=== PATIENT | male | born 1960 | race Caucasian/White ===

== ENCOUNTER 2017-08-18 13:41 | Inpatient (IN) | payer OTHER ==
[~2017-08-18] VITALS: Ht 177.8 cm; Wt 72.1 kg
[2017-08-18 14:04] VITALS: BP 99/68; PULSE 67; RESP 12; O2SAT 97
[2017-08-18] MEDS ORDERED: MORPHINE SULFATE 4 MG/ML INJ IV PUSH ONE ×4 (14:15→17:15)
[2017-08-18] MEDS ORDERED: SODIUM CHLORIDE 0.9% FLUSH 10 ML FLUSH IVF PRN ×2 (14:15)
[2017-08-18] MEDS ORDERED: SODIUM CHLOR 0.9% 1000 ML INJ 1,000 ML IV ONE ×2 (14:15)
[2017-08-18] MEDS ORDERED: ONDANSETRON HCL 4 MG/2 ML VIAL IV PUSH ONE ×2 (14:15)
--- NOTE | 2017-08-18 14:25 | PD ---
HPI Chief Complaint: Fall Time Seen by Provider: 14:00 Travel History International Travel<30 days: No Contact w/Intl Traveler<30days: No Traveled to known affect area: No History of Present Illness HPI Patient is a 57-year-old male presented to the emergency prompt evaluation after fall. Patient fell 10-15 feet from a tree. Patient works as a tree specialist. He currently reports back pain that is a 10 out of 10. He denies any numbness or tingling in his extremities. He denies any loss of consciousness or headache. He has a contusion to his left forehead. He denies any chest pain , abdominal pain, shortness of breath, nausea, vomiting, dizziness. Furthermore patient denies any significant past medical history but does report a history of iodine allergy, specifically IV contrast. Pain is worse with movement. No alleviating factors at this time. PFSH Past Medical History Medical History: Denies Significant Hx Tetanus Vaccination: Unknown Past Surgical History Appendectomy: Yes Social History Alcohol Use: Yes (occassionaly ) Tobacco Use: Yes (half pack a day ) Substance Use: No Allergies-Medications (Allergen,Severity, Reaction): Coded Allergies: iodine (Verified Allergy, Unknown, 08/18/17) Review of Systems Except as stated in HPI: all other systems reviewed are Neg Eyes: No: Blurred Vision HENT: No: Headaches, Neck Pain Cardiovascular: No: Chest Pain or Discomfort Respiratory: No: Shortness of Breath Gastrointestinal: No: Nausea, Abdominal Pain Musculoskeletal: Positive: Myalgias, Pain (back pain) Skin: Positive Other (abrasions) Neurologic: No: Focal Abnormalities, Change in Mentation, Sensory Disturbance Physical Exam Narrative GENERAL: Thin, well-developed, alert uncomfortable-appearing male. In no acute distress. SKIN: Warm and dry. Superficial abrasions to right wrist, left upper arm, lower back. HEAD: Atraumatic. Normocephalic. EYES: Pupils equal and round. No scleral icterus. No injection or drainage. ENT: No nasal bleeding or discharge. Mucous membranes pink and moist. NECK: Trachea midline. No JVD. CARDIOVASCULAR: Regular rate and rhythm. RESPIRATORY: No accessory muscle use. Clear to auscultation. Breath sounds equal bilaterally. GASTROINTESTINAL: Abdomen soft, non-tender, nondistended. Hepatic and splenic margins not palpable. MUSCULOSKELETAL: Extremities without clubbing, cyanosis, or edema. No obvious deformities. Tenderness to palpation over lumbar spine, no step-off noted. No spinal tenderness or step-off noted in cervical or thoracic spine. NEUROLOGICAL: Awake and alert. No obvious cranial nerve deficits. Motor grossly within normal limits. Five out of 5 muscle strength in the arms and legs. Normal speech. PSYCHIATRIC: Appropriate mood and affect; insight and judgment normal. Data Data Last Documented VS Vital Signs Date Time Temp Pulse Resp B/P (MAP) Pulse Ox O2 Delivery O2 Flow Rate FiO2 08/18/17 16:51 99.0 77 19 131/79 (96) 100 Room Air 08/18/17 14:10 2.00 Orders Orders Basic Metabolic Panel (Bmp) (08/18/17 14:08) Complete Blood Count With Diff (08/18/17 14:08) Prothrombin Time / Inr (Pt) (08/18/17 14:08) Act Partial Throm Time (Ptt) (08/18/17 14:08) Chest, Single Ap (08/18/17 14:08) Ct Brain W/O Iv Contrast(Rout) (08/18/17 14:08) Ct Cerv Spine W/O Contrast (08/18/17 14:08) Ct Thor Spine W/O Contrast (08/18/17 14:08) Ct Lumb Spine W/O Contrast (08/18/17 14:08) Iv Access Insert/Monitor (08/18/17 14:08) Ecg Monitoring (08/18/17 14:08) Oximetry (08/18/17 14:08) Oxygen Administration (08/18/17 14:08) Sodium Chloride 0.9% Flush (Ns Flush) (08/18/17 14:15) Ct Abd/Pel W/O Iv Contrast (08/18/17 ) Ct Thorax/ Chest Wo Iv Contras (08/18/17 ) Sodium Chlor 0.9% 1000 Ml Inj (Ns 1000 M (08/18/17 14:15) Morphine Inj (Morphine Inj) (08/18/17 14:15) Ondansetron Inj (Zofran Inj) (08/18/17 14:15) Morphine Inj (Morphine Inj) (08/18/17 17:15) TLSO (08/18/17 ) Admit Order (Ed Use Only) (08/18/17 17:15) Labs Laboratory Tests Test 08/18/17 14:25 White Blood Count 9.4 TH/MM3 Red Blood Count 4.79 MIL/MM3 Hemoglobin 15.2 GM/DL Hematocrit 44.9 % Mean Corpuscular Volume 93.8 FL Mean Corpuscular Hemoglobin 31.8 PG Mean Corpuscular Hemoglobin Concent 33.9 % Red Cell Distribution Width 12.8 % Platelet Count 175 TH/MM3 Mean Platelet Volume 8.8 FL Neutrophils (%) (Auto) 68.5 % Lymphocytes (%) (Auto) 20.2 % Monocytes (%) (Auto) 6.8 % Eosinophils (%) (Auto) 3.7 % Basophils (%) (Auto) 0.8 % Neutrophils # (Auto) 6.5 TH/MM3 Lymphocytes # (Auto) 1.9 TH/MM3 Monocytes # (Auto) 0.6 TH/MM3 Eosinophils # (Auto) 0.4 TH/MM3 Basophils # (Auto) 0.1 TH/MM3 CBC Comment DIFF FINAL Differential Comment Prothrombin Time 11.0 SEC Prothromb Time International Ratio 1.0 RATIO Activated Partial Thromboplast Time 21.9 SEC Blood Urea Nitrogen 12 MG/DL Creatinine 1.24 MG/DL Random Glucose 96 MG/DL Calcium Level 8.8 MG/DL Sodium Level 142 MEQ/L Potassium Level 3.5 MEQ/L Chloride Level 107 MEQ/L Carbon Dioxide Level 23.2 MEQ/L Anion Gap 12 MEQ/L Estimat Glomerular Filtration Rate 60 ML/MIN MDM Medical Decision Making Medical Screen Exam Complete: Yes Emergency Medical Condition: Yes Interpretation(s) Last Impressions Head CT 08/18/17 140 Signed Impressions: Service Date/Time: Friday, August 18, 2017 16:14 - CONCLUSION: Negative noncontrast head CT. Kwaku Salas MD Chest X-Ray [id number]/18/[id number] Signed Impressions: Service Date/Time: Friday, August 18, 2017 14:29 - CONCLUSION: No evidence of acute cardiopulmonary disease. Kwaku Salas MD Cervical Spine CT [id number] Signed Impressions: Service Date/Time: Friday, August 18, 2017 16:14 - CONCLUSION: Degenerative changes are noted without evidence for acute fracture. Justice Santacruz MD Chest CT 08/18/17 0000 Signed Impressions: Service Date/Time: Friday, August 18, 2017 16:24 - CONCLUSION: 1. Nonacute left clavicular fracture. 2. Lung nodules. 3. Apical emphysematous changes. 4. Atherosclerosis. Justice Santacruz MD Abdomen/Pelvis CT 08/18/17 0000 Signed Impressions: Service Date/Time: Friday, August 18, 2017 16:24 - CONCLUSION: 1. There is diverticulosis without diverticulitis. 2. Multiple spinous process fractures and transverse process fractures are seen within the lumbar spine at L4-L2 spinous processes, and L5-L2 transverse processes. 3. Cholelithiasis. 4. Small amount of hemorrhage is seen adjacent to the psoas musculature on the left. Justice Santacruz MD Laboratory Tests Test 08/18/17 14:25 White Blood Count 9.4 TH/MM3 Red Blood Count 4.79 MIL/MM3 Hemoglobin 15.2 GM/DL Hematocrit 44.9 % Mean Corpuscular Volume 93.8 FL Mean Corpuscular Hemoglobin 31.8 PG Mean Corpuscular Hemoglobin Concent 33.9 % Red Cell Distribution Width 12.8 % Platelet Count 175 TH/MM3 Mean Platelet Volume 8.8 FL Neutrophils (%) (Auto) 68.5 % Lymphocytes (%) (Auto) 20.2 % Monocytes (%) (Auto) 6.8 % Eosinophils (%) (Auto) 3.7 % Basophils (%) (Auto) 0.8 % Neutrophils # (Auto) 6.5 TH/MM3 Lymphocytes # (Auto) 1.9 TH/MM3 Monocytes # (Auto) 0.6 TH/MM3 Eosinophils # (Auto) 0.4 TH/MM3 Basophils # (Auto) 0.1 TH/MM3 CBC Comment DIFF FINAL Differential Comment Prothrombin Time 11.0 SEC Prothromb Time International Ratio 1.0 RATIO Activated Partial Thromboplast Time 21.9 SEC Blood Urea Nitrogen 12 MG/DL Creatinine 1.24 MG/DL Random Glucose 96 MG/DL Calcium Level 8.8 MG/DL Sodium Level 142 MEQ/L Potassium Level 3.5 MEQ/L Chloride Level 107 MEQ/L Carbon Dioxide Level 23.2 MEQ/L Anion Gap 12 MEQ/L Estimat Glomerular Filtration Rate 60 ML/MIN Vital Signs Date Time Temp Pulse Resp B/P (MAP) Pulse Ox O2 Delivery O2 Flow Rate FiO2 08/18/17 14:10 Nasal Cannula 2.00 08/18/17 14:10 98 Nasal Cannula 2.00 08/18/17 14:04 67 12 99/68 (09) 97 Differential Diagnosis Fracture versus contusion versus sprain versus strain versus abrasions versus hemorrhage versus other Narrative Course Patient presented after a fall from approximately 10-15 feet from a tree while at work. His chief complaint is pain in his lower back. He denies any head injury or loss of consciousness. Patient was cleared from the backboard, There is tenderness noted over the lumbar spine on palpation. No focal deficits noted on exam. CT scans, labs ordered and pending. IV access established, patient placed on cafeteria monitor and continuous pulse oximetry. Morphine ordered for pain. Cervical collar was placed by EMS on scene and patient arrived on a backboard. CT scans were read by the radiologist and reports first follows. CT scan the brain shows no acute abnormality. CT scan of cervical spine shows degenerative changes without evidence for acute fracture Chest x-ray shows no acute disease CT the abdomen and pelvis shows diverticulosis without diverticulitis, multiple spinous process fractures and transverse process fractures are seen within the lumbar spine at L4 and L2 spinous processes and L5 to L2 transverse processes. Additionally cholelithiasis was noted. Small amount of hemorrhage is seen adjacent to the psoas musculature on the left. CT scan of the thoracic spine shows no evidence for acute thoracic spine fracture or listhesis, slight degenerative changes are noted. There again is noted to be a fracture of left L2 transverse process. Chest CT shows nonacute left clavicular fracture. Lung nodules. Apical emphysematous changes, atherosclerosis. Findings were discussed with my attending physician. We discussed findings with Dr. Doherty, neurosurgeon. Patient we placed in a TLSO brace, he states that patient will likely need to be admitted for pain control. He recommended calling trauma surgeon for admission. If needed he would see patient in consult. Discussed with Dr. Gonsalez who accepted admission. Admit orders placed. Additional dose of morphine ordered for pain control. Diagnosis Primary Impression: Fracture of spinous process of lumbar vertebra Qualified Codes: S32.009A - Unspecified fracture of unspecified lumbar vertebra, initial encounter for closed fracture Additional Impressions: Fracture of transverse process of cervical vertebra Qualified Codes: S12.9XXA - Fracture of neck, unspecified, initial encounter Fall Qualified Codes: W19.XXXA - Unspecified fall, initial encounter Admitting Information Admitting Physician Requests: Admit Condition: Stable Christine Montenegro Aug 18, 2017 14:25
[2017-08-18 14:42] LABS: AUTOMATED NEUTROPHIL # 6.5 TH/MM3 (1.8-7.7); BASOPHIL # 0.1 TH/MM3 (0-0.2); BASOPHIL % 0.8 % (0.0-2.0); EOSINOPHIL # 0.4 TH/MM3 (0-0.4); EOSINOPHIL % 3.7 % (0.0-4.0); HEMATOCRIT 44.9 % (39.0-51.0); HEMOGLOBIN 15.2 GM/DL (13.0-17.0); LYMPH % 20.2 % (9.0-44.0); LYMPHOCYTE # 1.9 TH/MM3 (1.0-4.8); MEAN CELL VOLUME 93.8 FL (80.0-100.0); MEAN CORPUSCULAR HEMOGLOBIN 31.8 PG (27.0-34.0); MEAN CORPUSCULAR HGB CONC 33.9 % (32.0-36.0); MEAN PLATELET VOLUME 8.8 FL (7.0-11.0); MONO % 6.8 % (0.0-8.0); MONOCYTE # 0.6 TH/MM3 (0-0.9); NEUT % 68.5 % (16.0-70.0); PLATELET COUNT 175 TH/MM3 (150-450); RED BLOOD COUNT 4.79 MIL/MM3 (4.50-5.90); RED CELL DISTRIBUTION WIDTH 12.8 % (11.6-17.2); WHITE BLOOD COUNT 9.4 TH/MM3 (4.0-11.0)
--- NOTE | 2017-08-18 14:52 | RADRPT ---
EXAM DATE/TIME: 08/18/2017 14:29 [facility] COMPARISON: No previous studies available for comparison. INDICATIONS : Trauma. Fell from tree today. Short of breath. MEDICAL HISTORY : None. Smoker. SURGICAL HISTORY : None. ENCOUNTER: Initial ACUITY: 1 day PAIN SCORE: 0/10 LOCATION: Bilateral chest FINDINGS: A single view of the chest demonstrates the lungs to be symmetrically aerated without evidence of mas s, infiltrate or effusion. The cardiomediastinal contours are unremarkable. No perceptible acute osseous abnormality. There is an old, healed mid shaft fracture of the left clav icle. CONCLUSION: No evidence of acute cardiopulmonary disease. Kwaku Salas MD on August 18, 2017 at 14:49 Board Certified Radiologist. This report was verified electronically.
[2017-08-18 15:01] LABS: BICARBONATE 23.2 MEQ/L (21.0-32.0); CALCIUM 8.8 MG/DL (8.5-10.1); CREATININE 1.24 MG/DL (0.60-1.30)
--- NOTE | 2017-08-18 16:29 | RADRPT ---
EXAM DATE/TIME: 08/18/2017 16:14 [facility] COMPARISON: No previous studies available for comparison. INDICATIONS : Fell from tree RADIATION DOSE: 61.05 CTDIvol (mGy) MEDICAL HISTORY : None SURGICAL HISTORY : Appendectomy. ENCOUNTER: Initial ACUITY: 1 day PAIN SCALE: 10/10 LOCATION: cranial TECHNIQUE: Multiple contiguous axial images were obtained of the head. Using automated exposure control and adj ustment of the mA and/or kV according to patient size, radiation dose was kept as low as reasonably a chievable to obtain optimal diagnostic quality images. DICOM format image data is available electro nically for review and comparison. FINDINGS: CEREBRUM: The ventricles are normal for age. No evidence of midline shift, mass lesion, hemorrhage or acute in farction. No extra-axial fluid collections are seen. POSTERIOR FOSSA: The cerebellum and brainstem are intact. The 4th ventricle is midline. The cerebellopontine angle i s unremarkable. EXTRACRANIAL: The visualized portion of the orbits is intact. SKULL: The calvaria is intact. No evidence of skull fracture. CONCLUSION: Negative noncontrast head CT. Kwaku Salas MD on August 18, 2017 at 16:26 Board Certified Radiologist. This report was verified electronically.
--- NOTE | 2017-08-18 16:44 | RADRPT ---
EXAM DATE/TIME: 08/18/2017 16:14 [facility] COMPARISON: No previous studies available for comparison. INDICATIONS : Fell out of tree. RADIATION DOSE: 16.57 CTDIvol (mGy) MEDICAL HISTORY : None SURGICAL HISTORY : Appendectomy. ENCOUNTER: Initial ACUITY: 1 day PAIN SCALE: 10/10 LOCATION: neck TECHNIQUE: Volumetric scanning of the cervical spine was performed. Multiplanar reconstructions in the sagittal, coronal and oblique axial planes were performed. Using automated exposure control and adjustment o f the mA and/or kV according to patient size, radiation dose was kept as low as reasonably achievable to obtain optimal diagnostic quality images. DICOM format image data is available electronically f or review and comparison. FINDINGS: There is previous intervertebral fusion at C7-T1. No compression deformities or pre-vertebral soft ti ssue swelling. Odontoid process is intact. Grade 1 anterolisthesis of C4 on C5. Multilevel osteophyto sis. Moderate disc space narrowing at C5-6 and C6-7 with mild endplate sclerosis. There is severe fac et arthropathy on the right at C4-5 with sclerosis and osteophytosis. A well-corticated ossific fragm ent is seen at the inferior articular facet tip of C4 felt to be nonacute. There is severe foraminal stenosis at C3-4, C4-5 on the right, moderate foraminal narrowing at C5-6 on the left C6-7 on the rig ht. Apical emphysematous changes are noted. Mild canal narrowing is seen at C6-7, C5-6 secondary to d iffuse disc osteophyte disease. At C4-5 broad-based protrusion eccentric to the right is noted abutti ng the cord with effacement of ventral thecal sac and mild canal narrowing. CONCLUSION: Degenerative changes are noted without evidence for acute fracture. Justice Santacruz MD on August 18, 2017 at 16:39 Board Certified Radiologist. This report was verified electronically.
--- NOTE | 2017-08-18 16:50 | RADRPT ---
EXAM DATE/TIME: 08/18/2017 16:24 [facility] COMPARISON: No previous studies available for comparison. INDICATIONS : Fell out of a tree ORAL CONTRAST: No oral contrast ingested. RADIATION DOSE: 13.92 CTDIvol (mGy) ; Combined studies - Thorax/Abdomen/Pelvis MEDICAL HISTORY : None SURGICAL HISTORY : Appendectomy. ENCOUNTER: Initial ACUITY: 1 day PAIN SCALE: 10/10 LOCATION: Abdomen TECHNIQUE: Volumetric scanning of the abdomen and pelvis was performed. Using automated exposure control and ad justment of the mA and/or kV according to patient size, radiation dose was kept as low as reasonably achievable to obtain optimal diagnostic quality images. DICOM format image data is available electro nically for review and comparison. FINDINGS: There is a fracture of the left L2 transverse process, L3 transverse process and spinous process, rig ht L3 transverse process, bilateral L4 transverse process and spinous process, left and right L5 nye sverse processes. The sacroiliac joints are approximated. No pleural or pericardial effusions. Cholel ithiasis is noted. Liver, spleen, pancreas, adrenal glands, left unremarkable. Nonobstructing 4.8 mm lower pole right renal calculus, right midpole nonobstructing 1.4 cm calculus. Urinary bladder and pr ostate are unremarkable. No free fluid or free air. Diverticulosis of the sigmoid colon. There is caryl e hemorrhage tracking along the left iliopsoas musculature laterally from the L2-3 level inferiorly. There are no obvious compression fractures. CONCLUSION: 1. There is diverticulosis without diverticulitis. 2. Multiple spinous process fractures and transverse process fractures are seen within the lumbar spi ne at L4-L2 spinous processes, and L5-L2 transverse processes. 3. Cholelithiasis. 4. Small amount of hemorrhage is seen adjacent to the psoas musculature on the left. Justice Santacruz MD on August 18, 2017 at 16:43 Board Certified Radiologist. This report was verified electronically.
[2017-08-18 16:51] VITALS: BP 131/79; PULSE 77; RESP 19; TEMP 99; O2SAT 100
--- NOTE | 2017-08-18 16:53 | RADRPT ---
EXAM DATE/TIME: 08/18/2017 16:24 [facility] COMPARISON: CT ABDOMEN & PELVIS W/O CONTRAST, August 18, 2017, 16:24. INDICATIONS : Fell from a tree RADIATION DOSE: 13.92 CTDIvol (mGy) ; Combined studies - Thorax/Abdomen/Pelvis MEDICAL HISTORY : None SURGICAL HISTORY : Appendectomy. ENCOUNTER: Initial ACUITY: 1 day PAIN SCALE: 10/10 LOCATION: Bilateral chest TECHNIQUE: Volumetric scanning of the chest was performed. Using automated exposure control and adjustment of t he mA and/or kV according to patient size, radiation dose was kept as low as reasonably achievable to obtain optimal diagnostic quality images. DICOM format image data is available electronically for r eview and comparison. Follow-up recommendations for detected pulmonary nodules are based at a minimum on nodule size and pa tient risk factors according to Fleischner Society Guidelines. FINDINGS: Apical emphysematous changes are identified. There is a noncalcified nodule in the left lower lobe ab utting the oblique fissure on image 37 measuring 4.8 mm. There is no evidence of pneumothorax. Tiny n oncalcified right lower lobe nodule measuring 3.3 m on image 36. No adenopathy. No aneurysm. Coronary artery calcification is present. Cholelithiasis is noted. There is a nonacute fracture deformity lef t mid clavicle. CONCLUSION: 1. Nonacute left clavicular fracture. 2. Lung nodules. 3. Apical emphysematous changes. 4. Atherosclerosis. Justice Santacruz MD on August 18, 2017 at 16:48 Board Certified Radiologist. This report was verified electronically.
--- NOTE | 2017-08-18 17:14 | RADRPT ---
EXAM DATE/TIME: 08/18/2017 16:24 [facility] COMPARISON: CT THORAX W/O CONTRAST, August 18, 2017, 16:24. CT ABDOMEN & PELVIS W/O CONTRAST, August 18 7, 16:24. CT LUMBAR SPINE W/O CONTRAST, August 18, 2017, 16:24. CT CERVICAL SPINE W/O CONTRAST, N [id number], 16:14. INDICATIONS : Fell out of tree. RADIATION DOSE: CTDIvol (mGy) ; Reconstructed from previous dataset, no dose MEDICAL HISTORY : None SURGICAL HISTORY : Appendectomy. ENCOUNTER: Initial ACUITY: 1 day PAIN SCALE: 10/10 LOCATION: T spine TECHNIQUE: Volumetric scanning of the thoracic spine was performed. Multiplanar reconstructions in the sagittal , coronal and oblique axial planes were performed. Using automated exposure control and adjustment o f the mA and/or kV according to patient size, radiation dose was kept as low as reasonably achievable to obtain optimal diagnostic quality images. DICOM format image data is available electronically f or review and comparison. FINDINGS: There is a nonacute fracture the left clavicle. There is slight convex to the right curvature of the thoracic spine. Very slight nonacute superior endplate compression of T8 identified. Are present. Pre vious intravertebral fusion at the C7-T1. There is a fracture of the left L2 transverse process. The spinal canal is patent. A few scattered tiny disc bulges are seen centrally without canal or foramina l stenosis. CONCLUSION: 1. No evidence for acute thoracic spine fracture or listhesis. 2. Slight degenerative changes. 3. There is a fracture of the left L2 transverse process. Justice Santacruz MD on August 18, 2017 at 17:09 Board Certified Radiologist. This report was verified electronically.
--- NOTE | 2017-08-18 17:23 | RADRPT ---
EXAM DATE/TIME: 08/18/2017 16:24 [facility] COMPARISON: CT THORAX W/O CONTRAST, August 18, 2017, 16:24. CT ABDOMEN & PELVIS W/O CONTRAST, August 18 7, 16:24. CT THORACIC SPINE W/O CONTRAST, August 18, 2017, 16:24. INDICATIONS : Trauma, fall from tree today. RADIATION DOSE: ; Reconstructed from previous dataset, no dose MEDICAL HISTORY : None SURGICAL HISTORY : Appendectomy. ENCOUNTER: Initial ACUITY: 1 day PAIN SCALE: 10/10 LOCATION: Bilateral lower back TECHNIQUE: Volumetric scanning of the lumbar spine was performed. Multiplanar reconstructions in the sagittal, coronal and oblique axial planes were performed. Using automated exposure control and adjustment of the mA and/or kV according to patient size, radiation dose was kept as low as reasonably achievable t o obtain optimal diagnostic quality images. DICOM format image data is available electronically for review and comparison. FINDINGS: There are no compression deformities. There is severe degenerative disc disease at L5-S1 with vacuum disc phenomenon, disc space narrowing, osteophytosis and endplate sclerosis. Mild displaced fractures are noted of the left L5, L4, L3, L2 transverse processes, as well as the L4, L3 and L2 spinous proc esses. There is a fracture also present of the right L3, L4 and L5 transverse processes. There is no spinal stenosis. CONCLUSION: 1. Spinous process and transverse process fractures are noted within the lumbar spine as described ab ove. Justice Santacruz MD on August 18, 2017 at 17:18 Board Certified Radiologist. This report was verified electronically.
[2017-08-18] MEDS ORDERED: MORPHINE SULFATE 4 MG/ML INJ IV PUSH PRN ×2 (17:45)
[2017-08-18] MEDS ORDERED: CHLORHEXIDINE GLUCONATE 2 % 1 PACK (2 CLOTHS) TOP PRN ×2 (17:45)
[2017-08-18] MEDS ORDERED: ONDANSETRON HCL 4 MG/2 ML VIAL IV PUSH PRN ×2 (17:45)
[2017-08-18] MEDS ORDERED: MISCELLANEOUS NURSING INFORMATION XX SCH ×2 (17:45)
[2017-08-18] MEDS ORDERED: ACETAMINOPHEN/HYDROcodone 325 MG/5 MG TAB PO PRN ×2 (17:45)
--- NOTE | 2017-08-18 17:55 | HHI.HP ---
History of Present Illness Primary Care Physician No Primary Care Physician Admission Diagnosis LUMBAR FRACTURES, FALL Diagnoses: History of Present Illness 57 y.o healthy male,fell about 10 feet from a tree-c/o back pain,neuro intact, HD normal-work up with liao CT scan by the ER -patient has multiple TP,SP fractures of the lumbar spine.Will be admitted for pain control. Review of Systems Constitutional: DENIES: Diaphoretic episodes, Fatigue, Fever, Weight gain, Weight loss, Chills, Dizziness, Change in appetite, Night Sweats Endocrine: DENIES: Heat/cold intolerance, Polydipsia, Polyuria, Polyphagia Eyes: DENIES: Blurred vision, Eye pain Ears, nose, mouth, throat: DENIES: Tinnitus, Hearing loss, Vertigo, Nasal discharge, Oral lesions, Throat pain, Hoarseness, Ear Pain, Running Nose, Epistaxis, Sinus Pain, Toothache, Odynophagia Respiratory: DENIES: Apneas, Cough, Snoring, Wheezing, Hemoptysis, Sputum production, Shortness of breath Cardiovascular: DENIES: Chest pain, Palpitations, Syncope, Dyspnea on Exertion , PND, Lower Extremity Edema, Orthopnea, Claudication Gastrointestinal: DENIES: Abdominal pain, Black stools, Bloody stools, Constipation, Diarrhea, Nausea, Vomiting, Difficulty Swallowing, Anorexia Genitourinary: DENIES: Sexual dysfunction, Urinary frequency, Urinary incontinence, Urgency, Hematuria, Dysuria, Nocturia, Penile Discharge, Testicular Pain, Testicular Swelling Musculoskeletal: DENIES: Joint pain, Muscle aches, Stiffness, Joint Swelling, Back pain, Neck pain Hematologic/lymphatic: DENIES: Bruising, Lymphadenopathy Immunologic/allergic: DENIES: Eczema, Urticaria Neurologic: DENIES: Abnormal gait, Headache, Localized weakness, Paresthesias, Seizures, Speech Problems, Tremor, Poor Balance Psychiatric: DENIES: Anxiety, Confusion, Mood changes, Depression, Hallucinations, Agitation, Suicidal Ideation, Homicidal Ideation, Delusions Past Family Social History Allergies: Coded Allergies: iodine (Verified Allergy, Unknown, 08/18/17) Past Medical History arthritis Past Surgical History none Reported Medications tylenol,advil Family History none Social History none Physical Exam Vital Signs Vital Signs Date Time Temp Pulse Resp B/P (MAP) Pulse Ox O2 Delivery O2 Flow Rate FiO2 08/18/17 16:51 99.0 77 19 131/79 (96) 100 Room Air 08/18/17 14:30 17 08/18/17 14:10 Nasal Cannula 2.00 08/18/17 14:10 98 Nasal Cannula 2.00 08/18/17 14:04 67 12 99/68 (78) 97 Physical Exam GENERAL: This is a well-nourished, well-developed patient, in no apparent distress,but in pain SKIN: No rashes, ecchymoses or lesions.abrasion left humerus HEAD: Atraumatic. Normocephalic. No temporal or scalp tenderness. EYES: Pupils equal round and reactive. Extraocular motions intact.. No injection or drainage. ENT: Nose without bleeding,Airway patent. NECK: Trachea midline. No JVD or lymphadenopathy. Supple, nontender, no meningeal signs. CARDIOVASCULAR: Regular rate and rhythm without murmurs, gallops, or rubs. RESPIRATORY: Clear to auscultation. Breath sounds equal bilaterally. No wheezes , rales, or rhonchi. GASTROINTESTINAL: Abdomen soft, non-tender, nondistended, No guarding. MUSCULOSKELETAL: Extremities without clubbing, cyanosis, or edema. No joint tenderness, effusion, or edema noted.left arm abrasion NEUROLOGICAL: Awake and alert. Cranial nerves II through XII intact. Motor and sensory grossly within normal limits. Five out of 5 muscle strength in all muscle groups. Normal speech. Laboratory Laboratory Tests Test 08/18/17 14:25 White Blood Count 9.4 Red Blood Count 4.79 Hemoglobin 15.2 Hematocrit 44.9 Mean Corpuscular Volume 93.8 Mean Corpuscular Hemoglobin 31.8 Mean Corpuscular Hemoglobin Concent 33.9 Red Cell Distribution Width 12.8 Platelet Count 175 Mean Platelet Volume 8.8 Neutrophils (%) (Auto) 68.5 Lymphocytes (%) (Auto) 20.2 Monocytes (%) (Auto) 6.8 Eosinophils (%) (Auto) 3.7 Basophils (%) (Auto) 0.8 Neutrophils # (Auto) 6.5 Lymphocytes # (Auto) 1.9 Monocytes # (Auto) 0.6 Eosinophils # (Auto) 0.4 Basophils # (Auto) 0.1 CBC Comment DIFF FINAL Differential Comment Prothrombin Time 11.0 Prothromb Time International Ratio 1.0 Activated Partial Thromboplast Time 21.9 Blood Urea Nitrogen 12 Creatinine 1.24 Random Glucose 96 Calcium Level 8.8 Sodium Level 142 Potassium Level 3.5 Chloride Level 107 Carbon Dioxide Level 23.2 Anion Gap 12 Estimat Glomerular Filtration Rate 60 Result Diagram: 08/18/17 1425 08/18/17 1425 Imaging Last 48 hours Impressions Thoracic Spine CT 08/18/17 1408 Signed Impressions: Service Date/Time: Friday, August 18, 2017 16:24 - CONCLUSION: 1. No evidence for acute thoracic spine fracture or listhesis. 2. Slight degenerative changes. 3. There is a fracture of the left L2 transverse process. Justice Santacruz MD Lumbar Spine CT 08/18/17 1408 Signed Impressions: Service Date/Time: Friday, August 18, 2017 16:24 - CONCLUSION: 1. Spinous process and transverse process fractures are noted within the lumbar spine as described above. Justice Santacruz MD Head CT 08/18/17 140 Signed Impressions: Service Date/Time: Friday, August 18, 2017 16:14 - CONCLUSION: Negative noncontrast head CT. Kwaku Salas MD Chest X-Ray 08/18/17 140 Signed Impressions: Service Date/Time: Friday, August 18, 2017 14:29 - CONCLUSION: No evidence of acute cardiopulmonary disease. Kwaku Salas MD Cervical Spine CT 08/18/17 140 Signed Impressions: Service Date/Time: Friday, August 18, 2017 16:14 - CONCLUSION: Degenerative changes are noted without evidence for acute fracture. Justice Santacruz MD Chest CT 08/18/17 0000 Signed Impressions: Service Date/Time: Friday, August 18, 2017 16:24 - CONCLUSION: 1. Nonacute left clavicular fracture. 2. Lung nodules. 3. Apical emphysematous changes. 4. Atherosclerosis. Justice Santacruz MD Abdomen/Pelvis CT 08/18/17 0000 Signed Impressions: Service Date/Time: Friday, August 18, 2017 16:24 - CONCLUSION: 1. There is diverticulosis without diverticulitis. 2. Multiple spinous process fractures and transverse process fractures are seen within the lumbar spine at L4-L2 spinous processes, and L5-L2 transverse processes. 3. Cholelithiasis. 4. Small amount of hemorrhage is seen adjacent to the psoas musculature on the left. MD Lisette Powell VTE Risk Assessment Roque VTE Risk Assessment: Mod/High Risk (score >= 2) Ericrini Risk Assessment Model Point Value = 1 Point Value = 2 Point Value = 3 Point Value = 5 Age 41-60 Minor surgery BMI > 25 kg/m2 Swollen legs Varicose veins or History of unexplained or recurrent spontaneous Oral contraceptives or hormone replacement Sepsis (< 1 month) Serious lung disease, including pneumonia (< 1 month) Abnormal pulmonary function Acute myocardial infarction Congestive heart failure (< 1 month) History of inflammatory bowel disease Medical patient at bed rest Age 61-74 Arthroscopic surgery Major open surgery (> 45 min) Laparoscopic surgery (> 45 min) Malignancy Confined to bed (> 72 hours) Immobilizing plaster cast Central venous access Age >= 75 History of VTE Family history of VTE Factor V Leiden Prothrombin [id number] Lupus anticoagulant Anticardiolipin antibodies Elevated serum homocysteine Heparin-induced thrombocytopenia Other congenital or acquired thrombophilia Stroke (< 1 month) Elective arthroplasty Hip, pelvis, or leg fracture Acute spinal cord injury (< 1 month) Prophylaxis Regimen Total Risk Factor Score Risk Level Prophylaxis Regimen 0-1 Low Early ambulation 2 Moderate Order ONE of the following: *Sequential Compression Device (SCD) *Heparin 5000 units SQ BID 3-4 Higher Order ONE of the following medications: *Heparin 5000 units SQ TID *Enoxaparin/Lovenox 40 mg SQ daily (WT < 150 kg, CrCl > 30 mL/min) *Enoxaparin/Lovenox 30 mg SQ daily (WT < 150 kg, CrCl > 10-29 mL/min) *Enoxaparin/Lovenox 30 mg SQ BID (WT < 150 kg, CrCl > 30 mL/min) AND/OR *Sequential Compression Device (SCD) 5 or more Highest Order ONE of the following medications: *Heparin 5000 units SQ TID (Preferred with Epidurals) *Enoxaparin/Lovenox 40 mg SQ daily (WT < 150 kg, CrCl > 30 mL/min) *Enoxaparin/Lovenox 30 mg SQ daily (WT < 150 kg, CrCl > 10-29 mL/min) *Enoxaparin/Lovenox 30 mg SQ BID (WT < 150 kg, CrCl > 30 mL/min) AND *Sequential Compression Device (SCD) Assessment and Plan Assessment and Plan L2-L5 TP fx L2-L4 SP fx neuro intact admit for pain control DVT prophylaxis PT Tiera Gonsalez MD Aug 18, 2017 17:55
--- NOTE | 2017-08-18 18:41 | RADRPT ---
EXAM DATE/TIME: 08/18/2017 18:26 [facility] COMPARISON: No previous studies available for comparison. INDICATIONS : Left arm pain MEDICAL HISTORY : None. SURGICAL HISTORY : None. ENCOUNTER: Initial ACUITY: 1 day PAIN SCORE: 8/10 LOCATION: Left upper extremity FINDINGS: Two view examination of the left humerus demonstrates no evidence of fracture or dislocation. Bony m ineralization is normal. The soft tissue structures are intact. Nonacute fracture deformity of the l eft midclavicle. The humerus is intact. CONCLUSION: Nonacute left clavicular fracture. Justice Santacruz MD on August 18, 2017 at 18:39 Board Certified Radiologist. This report was verified electronically.
[2017-08-18 18:45] VITALS: BP 153/78; PULSE 64; RESP 16; TEMP 97.3; O2SAT 100
[2017-08-18] MEDS: METHOCARBAMOL 500 MG TAB PO SCH ×4 (18:52→22:38)
[2017-08-18] MEDS: KETOROLAC TROMETHAMINE 30 MG/ML (IVP) VIAL IV PUSH SCH ×4 (18:52→22:38)
[2017-08-18] MEDS: CHLORHEXIDINE GLUCONATE 2 % 1 PACK (2 CLOTHS) TOP SCH ×2 (19:24)
[2017-08-18] MEDS: DOCUSATE SODIUM 100 MG CAP PO SCH ×2 (19:32)
[2017-08-18] MEDS: ACETAMINOPHEN/HYDROcodone 325 MG/5 MG TAB PO PRN ×2 (19:33)
[2017-08-19] VITALS (7 sets, daily range): BP systolic 100–120; BP diastolic 59–79; PULSE 58–73; RESP 16–18; TEMP 96.5–97.8; O2SAT 94–98
[2017-08-19] MEDS: ACETAMINOPHEN/HYDROcodone 325 MG/5 MG TAB PO PRN ×12 (01:37→23:01)
[2017-08-19 05:00] LABS: AUTOMATED NEUTROPHIL # 5.6 TH/MM3 (1.8-7.7); BASOPHIL % 0.5 % (0.0-2.0); EOSINOPHIL # 0.6 TH/MM3 (0-0.4); EOSINOPHIL % 6.6 % (0.0-4.0); HEMATOCRIT 43.1 % (39.0-51.0); HEMOGLOBIN 14.8 GM/DL (13.0-17.0); LYMPH % 23.7 % (9.0-44.0); LYMPHOCYTE # 2.2 TH/MM3 (1.0-4.8); MEAN CELL VOLUME 93.8 FL (80.0-100.0); MEAN CORPUSCULAR HEMOGLOBIN 32.2 PG (27.0-34.0); MEAN CORPUSCULAR HGB CONC 34.4 % (32.0-36.0); MONO % 9.2 % (0.0-8.0); MONOCYTE # 0.9 TH/MM3 (0-0.9); PLATELET COUNT 166 TH/MM3 (150-450); RED CELL DISTRIBUTION WIDTH 13.1 % (11.6-17.2); WHITE BLOOD COUNT 9.3 TH/MM3 (4.0-11.0)
[2017-08-19 05:23] LABS: ALBUMIN 3.2 GM/DL (3.4-5.0); BICARBONATE 25.5 MEQ/L (21.0-32.0); BLOOD UREA NITROGEN 14 MG/DL (7-18); CALCIUM 8.2 MG/DL (8.5-10.1); CHLORIDE 107 MEQ/L (98-107); GLOMERULAR FILTRATION RATE 69 ML/MIN (>89); GLUCOSE,RANDOM 89 MG/DL (74-106); SODIUM (NA) 142 MEQ/L (136-145)
[2017-08-19 05:24] LABS: ALT (GPT) 23 U/L (12-78); AST (GOT) 43 U/L (15-37)
[2017-08-19 05:26] LABS: ALKALINE PHOSPHATASE 58 U/L (45-117); TOTAL BILIRUBIN ADULT 0.5 MG/DL (0.2-1.0); TOTAL PROTEIN 6.4 GM/DL (6.4-8.2)
[2017-08-19] MEDS: METHOCARBAMOL 500 MG TAB PO SCH ×6 (05:42→23:01)
[2017-08-19] MEDS: KETOROLAC TROMETHAMINE 30 MG/ML (IVP) VIAL IV PUSH SCH ×8 (05:43→23:01)
[2017-08-19] MEDS: DOCUSATE SODIUM 100 MG CAP PO SCH ×4 (09:00→19:31)
--- NOTE | 2017-08-19 13:39 | HHI.PR ---
Subjective Subjective Notes Feeling better less pain Objective Vitals/I&O Vital Signs Date Time Temp Pulse Resp B/P (MAP) Pulse Ox O2 Delivery O2 Flow Rate FiO2 08/19/17 08:00 96.5 58 18 120/67 (84) 97 08/18/17 16:51 Room Air 08/18/17 14:10 2.00 Labs Laboratory Tests Test 08/18/17 14:25 08/19/17 03:10 White Blood Count 9.4 9.3 Red Blood Count 4.79 4.60 Hemoglobin 15.2 14.8 Hematocrit 44.9 43.1 Mean Corpuscular Volume 93.8 93.8 Mean Corpuscular Hemoglobin 31.8 32.2 Mean Corpuscular Hemoglobin Concent 33.9 34.4 Red Cell Distribution Width 12.8 13.1 Platelet Count 175 166 Mean Platelet Volume 8.8 9.0 Neutrophils (%) (Auto) 68.5 60.0 Lymphocytes (%) (Auto) 20.2 23.7 Monocytes (%) (Auto) 6.8 9.2 Eosinophils (%) (Auto) 3.7 6.6 Basophils (%) (Auto) 0.8 0.5 Neutrophils # (Auto) 6.5 5.6 Lymphocytes # (Auto) 1.9 2.2 Monocytes # (Auto) 0.6 0.9 Eosinophils # (Auto) 0.4 0.6 Basophils # (Auto) 0.1 0.0 CBC Comment DIFF FINAL DIFF FINAL Differential Comment Prothrombin Time 11.0 Prothromb Time International Ratio 1.0 Activated Partial Thromboplast Time 21.9 Blood Urea Nitrogen 12 14 Creatinine 1.24 1.10 Random Glucose 96 89 Calcium Level 8.8 8.2 Sodium Level 142 142 Potassium Level 3.5 3.7 Chloride Level 107 107 Carbon Dioxide Level 23.2 25.5 Anion Gap 12 10 Estimat Glomerular Filtration Rate 60 69 Total Protein 6.4 Albumin 3.2 Alkaline Phosphatase 58 Aspartate Amino Transf (AST/SGOT) 43 Alanine Aminotransferase (ALT/SGPT) 23 Total Bilirubin 0.5 Cardiovascular: Regular Lungs: Clear Abdomen: Non-distended A/P Assessment and Plan Multiple transverse and spinal processes fractures Improved with current pain regimen Out of bed physical therapy discharge in 24 hours Tiera Gonsalez MD Aug 19, 2017 13:39
[2017-08-19] MEDS: ENOXAPARIN SODIUM 30 MG/0.3 ML SYRINGE SQ SCH ×2 (14:36)
[2017-08-19] MEDS ORDERED: MORPHINE SULFATE 4 MG/ML INJ IV PUSH ONE ×2 (20:30)
[2017-08-20] MEDS: ENOXAPARIN SODIUM 30 MG/0.3 ML SYRINGE SQ SCH ×4 (01:34→14:07)
[2017-08-20] MEDS: CHLORHEXIDINE GLUCONATE 2 % 1 PACK (2 CLOTHS) TOP SCH ×2 (04:00)
[2017-08-20] MEDS: METHOCARBAMOL 500 MG TAB PO SCH ×4 (05:29→14:07)
[2017-08-20] MEDS: ACETAMINOPHEN/HYDROcodone 325 MG/5 MG TAB PO PRN ×6 (05:30→14:08)
[2017-08-20] MEDS: KETOROLAC TROMETHAMINE 30 MG/ML (IVP) VIAL IV PUSH SCH ×4 (05:30→12:17)
[2017-08-20 07:50] LABS: HEMATOCRIT 43.8 % (39.0-51.0); HEMOGLOBIN 14.7 GM/DL (13.0-17.0); MEAN CELL VOLUME 94.6 FL (80.0-100.0); MEAN CORPUSCULAR HEMOGLOBIN 31.8 PG (27.0-34.0); MEAN CORPUSCULAR HGB CONC 33.7 % (32.0-36.0); PLATELET COUNT 165 TH/MM3 (150-450); RED BLOOD COUNT 4.63 MIL/MM3 (4.50-5.90); RED CELL DISTRIBUTION WIDTH 13.1 % (11.6-17.2); WHITE BLOOD COUNT 7.6 TH/MM3 (4.0-11.0)
[2017-08-20 08:00] VITALS: BP 121/74; PULSE 56; RESP 17; TEMP 96.3; O2SAT 98
[2017-08-20 08:15] LABS: BICARBONATE 29.4 MEQ/L (21.0-32.0); CALCIUM 8.1 MG/DL (8.5-10.1); CREATININE 1.04 MG/DL (0.60-1.30)
[2017-08-20] MEDS: DOCUSATE SODIUM 100 MG CAP PO SCH ×2 (09:24)
[2017-08-20] MEDS ORDERED: DOCU1CAP39 PO ×2 (11:00)
[2017-08-20 12:00] VITALS: BP_SYST 123; BP_SYST 150; BP_DIAS 72; BP_DIAS 83; PULSE 65; PULSE 74; RESP 18; TEMP 96.7; TEMP 97.4; O2SAT 100; O2SAT 96
[2017-08-20] MEDS ORDERED: HYDR-3516 PO ×2 (13:34)
[2017-08-20] MEDS ORDERED: METH500T3 PO ×2 (13:34)
[2017-08-20] MEDS ORDERED: WALKER WHEELS/F1 MIS ×2 (13:35)
--- NOTE | 2017-08-20 13:37 | HHI.FF ---
Face to Face Verification Diagnosis: (1) Fall (2) Fracture of clavicle, left, closed (3) Fracture of transverse process of cervical vertebra (4) Fracture of spinous process of lumbar vertebra Physical Therapy Order: Evaluate and Treat, Improve ambulation, Strength and gait training Home Health Nursing Order: Medical education Signs/symptoms of disease process Medication education-adverse effect Nursing assessment with vital signs I have seen patient Case Segura on 08/20/17. My clinical findings support the need for the requested home health care services because: Ltd mobility - disease progression Deconditioned w/ increased weakness Limited ability to care for self High risk of falls I certify that my clinical findings support that this patient is homebound because: Post-op weakness Impaired cognitive ability/safety Unsteady gait/balance Unsafe to leave home unassisted Equ-[id number] bed/chair Unable to use public transportation Xin Shah Aug 20, 2017 13:37
[2017-08-20] MEDS ORDERED: BACI500O9 TOPICAL ×2 (13:40)
--- NOTE | 2017-08-20 15:28 | HHI.DS ---
Discharge Summary Admission Date Aug 18, 2017 at 17:17 Discharge Date: Aug 20, 2017 Admitting Diagnosis LUMBAR FRACTURES, FALL (1) Fall ICD Codes: W19.XXXA - Unspecified fall, initial encounter Diagnosis: Principal Status: Acute (2) Fracture of clavicle, left, closed ICD Codes: S42.002A - Fracture of unspecified part of left clavicle, initial encounter for closed fracture Diagnosis: Principal (3) Fracture of transverse process of cervical vertebra ICD Codes: S12.9XXA - Fracture of neck, unspecified, initial encounter Diagnosis: Principal Status: Acute (4) Fracture of spinous process of lumbar vertebra ICD Codes: S32.009A - Unspecified fracture of unspecified lumbar vertebra, initial encounter for closed fracture Diagnosis: Principal Status: Acute (5) Maxillary fracture ICD Codes: S02.401A - Maxillary fracture, unspecified side, initial encounter for closed fracture Diagnosis: Principal Status: Acute (6) Orbit fracture ICD Codes: S02.80XA - Fracture of other specified skull and facial bones, unspecified side, initial encounter for closed fracture Diagnosis: Principal Brief History Fall CBC/BMP: 08/20/17 0715 08/20/17 0715 Significant Findings Laboratory Tests Test 08/18/17 14:25 08/19/17 03:10 08/20/17 07:15 Activated Partial Thromboplast Time 21.9 SEC (24.3-30.1) Estimat Glomerular Filtration Rate 60 ML/MIN (>89) 69 ML/MIN (>89) 74 ML/MIN (>89) Monocytes (%) (Auto) 9.2 % (0.0-8.0) Eosinophils (%) (Auto) 6.6 % (0.0-4.0) Eosinophils # (Auto) 0.6 TH/MM3 (0-0.4) Albumin 3.2 GM/DL (3.4-5.0) Calcium Level 8.2 MG/DL (8.5-10.1) 8.1 MG/DL (8.5-10.1) Aspartate Amino Transf (AST/SGOT) 43 U/L (15-37) Imaging Last Impressions Thoracic Spine CT 08/18/17 5898 Signed Impressions: Service Date/Time: Friday, August 18, 2017 16:24 - CONCLUSION: 1. No evidence for acute thoracic spine fracture or listhesis. 2. Slight degenerative changes. 3. There is a fracture of the left L2 transverse process. Justice Santacruz MD Lumbar Spine CT 08/18/17 1408 Signed Impressions: Service Date/Time: Friday, August 18, 2017 16:24 - CONCLUSION: 1. Spinous process and transverse process fractures are noted within the lumbar spine as described above. Justice Santacruz MD Head CT 08/18/17 1408 Signed Impressions: Service Date/Time: Friday, August 18, 2017 16:14 - CONCLUSION: Negative noncontrast head CT. Kwaku Salas MD Chest X-Ray 08/18/17 1408 Signed Impressions: Service Date/Time: Friday, August 18, 2017 14:29 - CONCLUSION: No evidence of acute cardiopulmonary disease. Kwaku Salas MD Cervical Spine CT 08/18/17 1408 Signed Impressions: Service Date/Time: Friday, August 18, 2017 16:14 - CONCLUSION: Degenerative changes are noted without evidence for acute fracture. Justice Santacruz MD Humerus X-Ray 08/18/17 0000 Signed Impressions: Service Date/Time: Friday, August 18, 2017 18:26 - CONCLUSION: Nonacute left clavicular fracture. Justice Santacruz MD Chest CT 08/18/17 0000 Signed Impressions: Service Date/Time: Friday, August 18, 2017 16:24 - CONCLUSION: 1. Nonacute left clavicular fracture. 2. Lung nodules. 3. Apical emphysematous changes. 4. Atherosclerosis. Justice Santacruz MD Abdomen/Pelvis CT 08/18/17 0000 Signed Impressions: Service Date/Time: Friday, August 18, 2017 16:24 - CONCLUSION: 1. There is diverticulosis without diverticulitis. 2. Multiple spinous process fractures and transverse process fractures are seen within the lumbar spine at L4-L2 spinous processes, and L5-L2 transverse processes. 3. Cholelithiasis. 4. Small amount of hemorrhage is seen adjacent to the psoas musculature on the left. Justice Santacruz MD PE at Discharge GENERAL: This is a 57-year-old male lying in bed. No distress noted. SKIN: Warm and dry. HEAD: Atraumatic. Normocephalic. EYES: PERRLA ENT: No nasal bleeding or discharge. Mucous membranes pink and moist. NECK: Trachea midline. No JVD. CARDIOVASCULAR: Regular rate and rhythm. RESPIRATORY: No accessory muscle use. Lungs are clear to auscultation. Breath sounds equal bilaterally. No distress or dyspnea. GASTROINTESTINAL: BS + x 4 quads. Abdomen soft, non-tender, nondistended. MUSCULOSKELETAL: Extremities without cyanosis, or edema. + peripheral pulses x 4 extremities. Warm with good capillary refill and sensation. MAEW. NEUROLOGICAL: Awake and alert. Normal speech and pattern. Hospital Course QUINAULT: This is a 57-year-old male that sustained a f all. He fell approximately 10 feet from a tree. INJURIES: L2-L5 transverse process and spinous process Hemorrhage to psoas muscle Lung nodules Consults: Case management. The patient is now tolerating a po diet. Eating and drinking well. Pain is being managed well with PO pain medications, and patient is being a provided with a script for pain meds upon discharge. (NO driving while taking narcotic pain medication enforced to patient.) Pt is having regular bowel movements, and have recommended to patient to continue with stool softeners while taking narcotic pain medications to prevent constipation. Pt has been participating in PT and OT while admitted at [facility] and has been ambulating with their assistance and independently . Home health care PT has been arranged All follow up appointments have been provided and discussed with the patient. It is recommended that the patient keeps all his follow up appointments for continued recovery. Patient's condition and plan of care discussed with collaborating trauma surgeon. He is agreeable to plan for discharge today. Therefore, the patient is stable to be safely discharged home from a trauma surgery standpoint. Thank you for allowing us to participate in his care. We wish Case the best in his recovery. L2-L5 transverse process and spinous process Hemorrhage to psoas muscle Supportive care Pain management PT and OT ordered TLSO brace when out of bed Follow H&H - stable * Follow up with PCP for repeat scan for noted lung nodules Pt Condition on Discharge: Stable Discharge Disposition: Discharge Home Discharge Instructions DIET: Follow Instructions for: As Tolerated, No Restrictions Speech Therapy-Diet Recommends: Regular Activities you can perform: Regular-No Restrictions Activities to Avoid: Concussion Sports, Contact Sports, Lifting/Bending, Strenuous Activity Other Activity Instructions: No driving while taking narcotic pain mediciations Xin Shah Aug 20, 2017 15:28
== END 2017-08-20 17:58 | disposition home or self-care (01) | DRG 552 ==
LOC: NEPE 13:41 → NEDA 17:17 → N06A 18:39
PROVIDERS: ADMIT Surgery Trauma Surgery; ATTEND Surgery Trauma Surgery
DX: S32.059A Unspecified fracture of fifth lumbar vertebra, initial encounter for closed fracture (principal); S42.012A Anterior displaced fracture of sternal end of left clavicle, initial encounter for closed fracture; K80.20 Calculus of gallbladder without cholecystitis without obstruction; S32.049A Unspecified fracture of fourth lumbar vertebra, initial encounter for closed fracture; S32.029A Unspecified fracture of second lumbar vertebra, initial encounter for closed fracture; S32.039A Unspecified fracture of third lumbar vertebra, initial encounter for closed fracture; W14.XXXA Fall from tree, initial encounter; Z91.041 Radiographic dye allergy status; Z72.0 Tobacco use; R91.8 Other nonspecific abnormal finding of lung field
CPT/HCPCS: 70450; 71010; 71250; 72125; 72128; 72131; 73060; 74176; 80048; 80053; 85025; 85027; 85610; 85730; 96361; 96374; 96375; J1650; J1885; J2270; J2405; J7030; L0200; L0484